=== PATIENT | male | born 1955 ===

== ENCOUNTER 2025-01-17 21:24 | Emergency (ER) | payer MEDICARE, MEDICAID, SELFPAY ==
[2025-01-17 22:45] VITALS: PULSE 97; RESP 18; O2SAT 98; BMI 24.1
--- NOTE | 2025-01-17 23:03 | PD.EDEAR ---
ED Ear RME/HPI General Chief complaint: Ear Stated complaint: EAR PAIN Time Seen by Provider: 01/17/25 22:45 Arrival date/time: 01/17/25 21:24 RME / HPI RME / HPI Narrative: See [facility] for Dr. Gillette's HPI documentation. Related Data Home Medications ?Medication ?Instructions ?Recorded ?Confirmed cyclobenzaprine 10 mg tablet 10 mg PO BID 04/22/18 04/22/18 ranitidine HCl 150 mg capsule 150 mg PO BID 04/22/18 04/22/18 Previous Rx's ?Medication ?Instructions ?Recorded bacitracin 500 unit/gram topical 1 applic topical Q8H #14 grams 09/23/22 ointment sulfamethoxazole 800 1 tab PO Q12H #14 tabs 09/23/22 mg-trimethoprim 160 mg tablet (Bactrim DS) amoxicillin 875 mg-potassium 1 tab PO BID #20 tabs 01/17/25 clavulanate 125 mg tablet [id number] 3.3 4 drp otic (ear) QID 7 days #10 mL 01/17/25 mg-3 mg-10 mg-0.5 mg/mL ear drops,susp (Cortisporin-TC) [id number]-[id number] 3.5 1 drp ophthalmic (eye) Q6H 5 days 01/17/25 mg/mL-10,000 unit/mL-0.1% eye #5 mL drops (Maxitrol) Allergies Allergy/AdvReac Type Severity Reaction Status Date / Time No Known Allergies Allergy Verified 01/17/25 22:44 Review of Systems Review of Systems Systems Reviewed: All systems reviewed, normal except as documented Past Medical History Past Medical History CARDIAC: Positive Cardiac Disorders and Hypertension; Negative Congestive Heart Failure RESPIRATORY: Negative Chronic Obstructive Pulmonary Disease (COPD) GENITOURINARY: Positive Genitourinary Disorders; Negative Renal Disease ENDOCRINE: Negative Diabetes Mellitus Type 1 or Diabetes Mellitus Type 2 HEMATOLOGIC: Positive Anemia Social History SMOKING STATUS: Current some day smoker SUBSTANCE USE: marijuana ED Exam Narrative Physical exam: See [facility] for Dr. Gillette's physical exam documentation. Course Quality Measures none Orders Category Date Time Status Amoxicillin/Pot Clav 875 [Augmentin 875] Med 01/17/25 23:10 Discontinued 1 tab PO X1 ONE HYDROmorphone INJ [Dilaudid Inj] Med 01/17/25 23:10 Discontinued 1 mg IM X1 ONE Vital Signs Vital signs: Vital Signs Temperature 97.8 F 01/17/25 23:05 Pulse Rate 72 01/17/25 23:05 Respiratory Rate 20 01/17/25 23:05 Blood Pressure 133/81 H 01/17/25 23:05 Pulse Oximetry (%) 95 01/17/25 23:05 Oxygen Delivery Method Room Air 01/17/25 23:05 Ear MDM Narrative MDM Narrative:: This section includes all my notes and documentations, including HPI, PE, and ED course. Aaron Gillette MD HPI: 69-year-old male here with several days of severe left ear pain. No fever or chills. No other complaints. ROS: All negative except as documented in HPI. Physical Exam: General: Alert and oriented. Appears uncomfortable. Eyes: Conjunctivae injected with exudate bilaterally. ENT: No nasal congestion. Pharynx normal. Right TM and auditory canal normal. Left TM severely erythematous and bulging with loss of landmarks. Left auditory canal severely edematous with pus. Neck: Supple. Heart: RRR. Lungs: No respiratory distress. Good air movement. No rhonchi, wheezing, rales. Skin: Warm and dry. Neuro: Alert and oriented X 3. I reviewed EMS notes. At this point, diagnoses include: Infection of left ear Infection of both eyes Treatment here included: Augmentin 875 mg orally Dilaudid 1 mg IM Recommended outpatient management. Based on my best medical judgment, made decision no further evaluation or treatment indicated at this time. Patient understands and agrees to the discharge instructions customized and printed, see below. Discharge Instructions from Dr. Gillette printed for you: 1. You have severe left ear infection and infection of both eyes. 2. Take oral Augmentin as prescribed. 3. Use left the eardrops as prescribed. 4. Use eyedrops for both eyes as prescribed. 5. See a private doctor on 01/19/2025 for recheck. Ask for help until you are completely better. If needed ask for referrals to see medical certification specialist and operations research group manager. Unfortunately, this hospital doesn't have these specialists. 6. Seek immediate medical care with worsening or with any concerns. Aaron Gillette MD Patient data External records reviewed:: [facility] previous records (Per chart review, patient was seen here on 09/23/22 for cellulitis.) and EMS form Clinical information provided by:: patient Social determinants that could affect healthcare access:: none Patient has the following chronic illnesses:: HTN, anemia How is presenting disease/condition affected by chronic disease/condition?: uneffected by Evaluation data The following diagnostics were reviewed and interpreted by me:: other (specify) (none) Lab and/or radiology exams considered but not ordered:: none Interpretation Summary: none Medications / Prescriptions Medications or Prescriptions considered but not ordered:: none Medication administrations:: Medication Administration History Discontinued Medications Amoxicillin/Clavulanate Potassium (Amoxicillin/Pot Clav 875 Tablet) 1 tab PO X1 ONE Stop: 01/17/25 23:11 Last Admin: 01/17/25 23:22 Dose: 1 tab Documented By: BD Hydromorphone HCl (Hydromorphone Inj 2 Mg/Ml Vial) 1 mg IM X1 ONE Stop: 01/17/25 23:11 Last Admin: 01/17/25 23:21 Dose: 1 mg Documented By: BD Augmentin 875 mg orally Dilaudid 1 mg IM Consultations Consultation(s) initiated? (list below): No Diagnosis Ear Differential Diagnosis: otitis externa, otitis media, foreign body in ear, ruptured TM and cerumen impaction Most likely diagnosis given after review of the tests above:: Infection of left ear Infection of both eyes Admission Indicated Admission indicated?: not indicated Explain why admission is indicated or not indicated:: With no condition needing emergent intervention, there was no indication for admission. Admission Request Was there a request for admission?: No Disposition Plan Disposition Plan: Discharge Discharge Attestation Discharge Attestation: The patient and all family members were given an opportunity to ask questions and understood the discharge instructions. Discharge instructions specifically effects, indications for sooner follow up or return to the emergency department, and the expected course of current diagnosis. Patient condition: Stable Discharge Plan Plan Patient Disposition: HOME (Self Care) Prescriptions/Referrals Prescriptions/Med Rec: New Cortisporin-TC 3.3-3-10-0.5 mg/mL drops,suspension 4 drp otic (ear) QID 7 Days Qty: 10 1RF amoxicillin-pot clavulanate 875-125 mg tablet 1 tab PO BID Qty: 20 0RF neomycin-polymyxin B-dexameth [Maxitrol] 3.5mg/mL-10,000 unit/mL-0.1 % drops,suspension 1 drp ophthalmic (eye) Q6H 5 Days Qty: 5 1RF No Action ranitidine HCl 150 mg Capsule 150 mg PO BID cyclobenzaprine 10 mg Tablet 10 mg PO BID bacitracin 500 unit/gram ointment 1 applic topical Q8H Qty: 14 0RF sulfamethoxazole-trimethoprim [Bactrim DS] 800-160 mg tablet 1 tab PO Q12H Qty: 14 0RF Problem List Clinical Impression: Infection of left ear, Infection of both eyes Patient/Caregiver Discharge Instructions Discharge Activity: activity as tolerated Education Materials: ED Conjunctivitis, Bacterial, ED Otitis Media Antibiotic ..., ED External Ear Infection (Adult) Additional Instructions: Discharge Instructions from Dr. Gillette printed for you: 1. You have severe left ear infection and infection of both eyes. 2. Take oral Augmentin as prescribed. 3. Use left the eardrops as prescribed. 4. Use eyedrops for both eyes as prescribed. 5. See a private doctor on 01/19/2025 for recheck. Ask for help until you are completely better. If needed ask for referrals to see medical certification specialist and operations research group manager. Unfortunately, this hospital doesn't have these specialists. 6. Seek immediate medical care with worsening or with any concerns. Print Language: Turkmen Stand Alone Forms: [facility] Award Info., Patient Portal Info Letter
[2025-01-17 23:05] VITALS: BP 133/81; PULSE 72; RESP 20; TEMP 36.6; O2SAT 95
[2025-01-17] MEDS: HYDROmorphone INJ 2 MG/ML VIAL 1 MG IM (23:21)
[2025-01-17] MEDS: AMOXICILLIN/POT CLAV 875 TABLET 1 TAB PO (23:22)
== END 2025-01-17 23:28 | disposition home or self-care (01) ==
LOC: SERX 23:48
PROVIDERS: Emergency Provider Emergency Medicine; PCP Family Medicine
DX: H66.92 Otitis media, unspecified, left ear (principal); H44.003 Unspecified purulent endophthalmitis, bilateral
CPT/HCPCS: 96372; 99282; J1171; A9270